=== PATIENT | female | born 1965 | race Two or more races ===

== ENCOUNTER 2022-01-13 09:09 | Outpatient (CLI) | payer OTHER | END 2022-01-13 09:17 | disposition home or self-care (01) | LOC: RX STUDY 09:09 | PROVIDERS: ATTEND Internal Medicine Gastroenterology | DX: R10.32 Left lower quadrant pain (principal); R93.5 Abnormal findings on diagnostic imaging of other abdominal regions, including retroperitoneum; R31.9 Hematuria, unspecified; K59.09 Other constipation; R19.4 Change in bowel habit ==